=== PATIENT | female | born 1975 | race Hispanic/Latino ===

== ENCOUNTER 2021-04-28 09:56 | Emergency (ER) | payer OTHER ==
[~2021-04-28] VITALS: Ht 152.4 cm; Wt 81.6 kg
[2021-04-28] MEDS ORDERED: KETOROLAC TROMETHAMINE 30 MG/ML VIAL IV STA (10:24)
[2021-04-28] MEDS ORDERED: ONDANSETRON HCL INJ 2MG/ML 2ML 2 MG/ML VIAL IV STA ×2 (10:24→12:49)
[2021-04-28] MEDS ORDERED: SODIUM CHLORIDE 0.9% 1000ML 1,000 ML ONE (10:30)
[2021-04-28] MEDS ORDERED: ONDANSETRON HCL INJ 2MG/ML 2ML 2 MG/ML VIAL ONE (10:30)
[2021-04-28] MEDS ORDERED: SODIUM CHLORIDE 0.9% 1000ML 1,000 ML IV ONE (10:30)
[2021-04-28] MEDS ORDERED: KETOROLAC TROMETHAMINE 30 MG/ML VIAL ONE (10:30)
[2021-04-28] MEDS ORDERED: IOPAMIDOL 370 MG/ML 200 ML INFUS..BTL INJ ONE (10:42)
[2021-04-28] MEDS ORDERED: SODIUM CHLORIDE 0.9% 50ML 50 ML ONE (10:43)
[2021-04-28] MEDS ORDERED: METRONIDAZOLE 500MG/NS 100ML 100 ML IV ONE ×2 (12:15→12:23)
[2021-04-28] MEDS ORDERED: CIPROFLOXACIN 400 MG/D5W 200ML 200 ML IV ONE ×2 (12:15→12:24)
[2021-04-28] MEDS ORDERED: Morphine 4mg Syringe 4 MG/ML INJ IV ONE (13:00)
[2021-04-28] MEDS ORDERED: CIPRO500 MG PO (15:41)
[2021-04-28] MEDS ORDERED: METRONIDAZOLE500 MG PO (15:44)
[2021-04-28] MEDS ORDERED: ONDANSETRON ODT4 MG PO (15:45)
[2021-04-28] MEDS ORDERED: DICYCLOMINE HCL20 MG PO (15:46)
[2021-04-28] MEDS ORDERED: ULTRAM 50MG50 MG PO (15:52)
[2021-04-28 16:09] VITALS: BP 104/68
== END 2021-04-28 16:12 | disposition home or self-care (01) ==
LOC: FSED 10:13
DX: R10.30 Lower abdominal pain, unspecified (principal); K57.32 Diverticulitis of large intestine without perforation or abscess without bleeding; R30.0 Dysuria; K21.9 Gastro-esophageal reflux disease without esophagitis
CPT/HCPCS: 74177; 80048; 80076; 81003; 81025; 85025; 96374; 96376; 99283; J1885; J2270; J2405; J7030; Q9967

== ENCOUNTER 2024-06-11 11:22 | Emergency (ER) | payer OTHER ==
[~2024-06-11] VITALS: Ht 149.9 cm; Wt 85.1 kg
[~2024-06-11 11:22] MED LIST: CIPRO500 MG PO; DICYCLOMINE HCL20 MG PO; METRONIDAZOLE500 MG PO; ONDANSETRON ODT4 MG PO; ULTRAM 50MG50 MG PO
[2024-06-11] MEDS ORDERED: SUMATRIPTAN SUC25 MG PO (11:41)
[2024-06-11] MEDS ORDERED: AUGMENTIN 500-1 EACH PO (11:41)
[2024-06-11] MEDS: SODIUM CHLORIDE 0.9% 1000ML 1,000 ML IV ONE (12:41)
[2024-06-11] MEDS: METOCLOPRAMIDE HCL 10 MG/2ML VIAL IV ONE (12:41)
[2024-06-11] MEDS: KETOROLAC TROMETHAMINE 30 MG/ML VIAL IV STA (12:42)
[2024-06-11] MEDS ORDERED: REGLAN10 MG PO (13:28)
[2024-06-11 13:33] VITALS: PULSE 61; RESP 16; TEMP 97.8; O2SAT 100
== END 2024-06-11 13:33 | disposition home or self-care (01) ==
LOC: FSED 11:31
DX: R51.9 Headache, unspecified (principal); R11.0 Nausea; K21.9 Gastro-esophageal reflux disease without esophagitis
CPT/HCPCS: 96374; 96375; 99284; J1885; J2765; J7030